=== PATIENT | male | born 1945 | race Hispanic/Latino ===

== ENCOUNTER 2019-05-03 06:43 | Day surgery (SDC) | payer OTHER ==
[~2019-05-03] VITALS: Ht 175.3 cm; Wt 66.7 kg
[~2019-05-03 06:43] MED LIST: SODIUM CHLORIDE 0.9% 1000ML 1,000 ML IV ONE
[2019-05-03 08:17] VITALS: BP 137/65
[2019-05-03] MEDS ORDERED: PRAV40TA3 PO (08:43)
[2019-05-03] MEDS ORDERED: ACET-2247 PO (08:43)
[2019-05-03] MEDS ORDERED: TRAM1TAB PO (08:43)
[2019-05-03] MEDS ORDERED: ALBU1.252 IH (08:43)
[2019-05-03] MEDS ORDERED: IPRA0.2S54 IH (08:43)
[2019-05-03] MEDS ORDERED: DICL2100G TP (08:43)
[2019-05-03] MEDS ORDERED: POLY17PO4 PO (08:43)
[2019-05-03] MEDS ORDERED: MED PASS PO (08:43)
[2019-05-03] MEDS ORDERED: MAGN400O17 PO (08:43)
[2019-05-03] MEDS ORDERED: DICL1KIT14 TP (08:43)
[2019-05-03] MEDS ORDERED: LACT10SO9 PO (08:43)
[2019-05-03] MEDS ORDERED: POTA20LI PO (08:43)
[2019-05-03] MEDS ORDERED: IBUP-2070 PO (08:43)
[2019-05-03] MEDS ORDERED: MULT-1192 PO (08:43)
[2019-05-03] MEDS ORDERED: FLUT1DIS IH (08:43)
[2019-05-03] MEDS ORDERED: PHENYLEPHRINE HCL 10 MG/ML 1ML VIAL IV ONE (09:23)
[2019-05-03 09:44] VITALS: BP 87/39
[2019-05-03 09:49] VITALS: BP 89/44
[2019-05-03 09:59] VITALS: BP 120/36
[2019-05-03 10:06] VITALS: BP 135/56
[2019-05-03 10:09] VITALS: BP 127/57
--- NOTE | 2019-05-03 10:40 | NUR ---
Update Report called to Geni Morales LVN from [facility] in [place], [place]. 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
== END 2019-05-03 11:15 ==
LOC: ENDO 06:43 → DAH 06:43 → ENDO 11:15
PROVIDERS: ATTEND Internal Medicine
DX: K64.0 First degree hemorrhoids (principal); K57.30 Diverticulosis of large intestine without perforation or abscess without bleeding; M19.90 Unspecified osteoarthritis, unspecified site; E78.5 Hyperlipidemia, unspecified; F03.90 Unspecified dementia, unspecified severity, without behavioral disturbance, psychotic disturbance, mood disturbance, and anxiety; F32.9 Major depressive disorder, single episode, unspecified; F41.9 Anxiety disorder, unspecified; I10 Essential (primary) hypertension; J44.9 Chronic obstructive pulmonary disease, unspecified; Z79.899 Other long term (current) drug therapy; Z98.890 Other specified postprocedural states; D12.4 Benign neoplasm of descending colon
CPT/HCPCS: 45385; 88305; 93005; A4606; J2370; J7030; 45384